=== PATIENT | male | born 1960 | race Caucasian/White ===

== ENCOUNTER → 2020-11-02 | Day surgery (SDC) | payer OTHER ==
[~2020-11-02] MED LIST: 3IN1 COMMODE; LAMICTAL100 MG PO; OLANZAPINE20 MG PO
[2020-11-02 09:04] LABS: HCT 44.5 % (42.0-52.0); HGB 14.8 g/dl (13.2-18.0); MCH 29.7 pg (25.0-31.0); MCHC 33.3 g/dL (32.0-36.0); MCV 89.2 fL (78.0-100.0); MPV 10.1 fL (6.0-9.5); RBC 4.99 M/uL (4.70-6.00); RDW 12.3 % (11.5-14.0); WBC 7.6 K/uL (4.0-10.5)
[2020-11-02 09:55] LABS: ALBUMIN 3.7 g/dL (3.4-5.0); BILIRUBIN - TOTAL 0.1 mg/dL (0.2-1.0); BUN/CREAT RATIO (CALC) 12.5 RATIO; CREATININE 0.88 mg/dL (0.67-1.17); GLOBULIN (CALCULATION) 3.8 g/dL; POTASSIUM 4.2 mmol/L (3.5-5.1); TOTAL PROTEIN 7.5 g/dL (6.4-8.2)
== END | disposition home or self-care (01) ==
LOC: FAS 08:35
PROVIDERS: Surgery
DX: Z12.11 Encounter for screening for malignant neoplasm of colon (principal); F41.9 Anxiety disorder, unspecified; F31.9 Bipolar disorder, unspecified; K21.9 Gastro-esophageal reflux disease without esophagitis; F17.210 Nicotine dependence, cigarettes, uncomplicated; F10.10 Alcohol abuse, uncomplicated; Z79.899 Other long term (current) drug therapy; Z88.0 Allergy status to penicillin
CPT/HCPCS: 36415; 80053; J2704; J7120